=== PATIENT | female | born 1950 | race Caucasian/White ===

== ENCOUNTER 2023-03-31 20:15 | Emergency (ER) | payer OTHER ==
[~2023-03-31] VITALS: Ht 160 cm; Wt 74.8 kg
[2023-03-31 20:16] VITALS: BP 190/77; PULSE 84; RESP 16; TEMP 97.4; O2SAT 98
[2023-03-31] MEDS ORDERED: MORPHINE SULFATE 4 MG/ML SYR IM ONE (20:55)
[2023-03-31] MEDS ORDERED: HYDR-5191 PO (20:59)
== END 2023-03-31 21:05 | disposition home or self-care (01) ==
LOC: MED 20:15
DX: G89.29 Other chronic pain (principal); M54.50 Low back pain, unspecified; R03.0 Elevated blood-pressure reading, without diagnosis of hypertension; E11.9 Type 2 diabetes mellitus without complications; F17.200 Nicotine dependence, unspecified, uncomplicated; Z79.4 Long term (current) use of insulin; Z79.899 Other long term (current) drug therapy
CPT/HCPCS: 81002; 96372; 99283; J2270

== ENCOUNTER 2023-04-04 18:04 | Emergency (ER) | payer OTHER ==
[~2023-04-04] VITALS: Ht 157.5 cm; Wt 72.6 kg
[~2023-04-04 18:04] MED LIST: HYDR-5191 PO
[2023-04-04 18:12] VITALS: BP 172/71; PULSE 77; RESP 18; TEMP 97.9; O2SAT 98
[2023-04-04] MEDS ORDERED: MORPHINE SULFATE 4 MG/ML SYR IM ONE (18:30)
[2023-04-04 20:00] VITALS: BP 139/79; PULSE 82; RESP 17; TEMP 36.66960; O2SAT 98
== END 2023-04-04 20:00 | disposition home or self-care (01) ==
LOC: MED 18:04
DX: G89.29 Other chronic pain (principal); M25.551 Pain in right hip; M25.552 Pain in left hip; M54.9 Dorsalgia, unspecified; E11.9 Type 2 diabetes mellitus without complications; Z79.899 Other long term (current) drug therapy
CPT/HCPCS: 96372; 99283; J2270

== ENCOUNTER 2023-04-06 19:03 | Emergency (ER) | payer OTHER ==
[~2023-04-06] VITALS: Ht 154.9 cm; Wt 63.5 kg
[2023-04-06 19:23] VITALS: BP 157/69; PULSE 67; RESP 18; TEMP 98.4; O2SAT 98
[2023-04-06] MEDS ORDERED: KETOROLAC 30 MG/ML VIAL ONE (23:05)
[2023-04-06] MEDS ORDERED: HYDROcodone/APAP 5/325 MG 1 TAB TAB ONE (23:05)
[2023-04-06] MEDS ORDERED: HYDROcodone/APAP 5/325 MG 1 TAB TAB PO ONE (23:15)
[2023-04-06] MEDS ORDERED: CYCL-711 PO (23:15)
[2023-04-06] MEDS ORDERED: KETOROLAC 30 MG/ML VIAL IM ONE (23:15)
[2023-04-06] MEDS ORDERED: NAPR-54 PO (23:15)
[2023-04-06 23:32] VITALS: BP 150/72; PULSE 70; RESP 17; TEMP 98; O2SAT 99
== END 2023-04-06 23:32 | disposition home or self-care (01) ==
LOC: MED 19:03
DX: M54.50 Low back pain, unspecified (principal); G89.29 Other chronic pain; M79.605 Pain in left leg; E11.9 Type 2 diabetes mellitus without complications; I10 Essential (primary) hypertension; Z79.899 Other long term (current) drug therapy
CPT/HCPCS: 96372; 99283; J1885